=== PATIENT | male | born 1955 | race Caucasian/White ===

== ENCOUNTER 2020-09-09 12:09 | Day surgery (SDC) | payer OTHER ==
[~2020-09-09] VITALS: Ht 177.8 cm; Wt 71.8 kg
[~2020-09-09 12:09] MED LIST: CEPH500 PO; HYDACE5 PO; IBUP200 PO; TADA10TA
--- NOTE | 2020-09-09 14:15 | NUR ---
09/09/20 1415 Shira Hernandez PROPOFOL ADMINISTERED BY ANTOINE.
== END 2020-09-09 14:15 | disposition home or self-care (01) ==
LOC: ORSCSDS 12:09
PROVIDERS: Internal Medicine Gastroenterology
PROC: 0DBK8ZX Excision of Ascending Colon, Via Natural or Artificial Opening Endoscopic, Diagnostic (ICD-10-PCS; principal; 2020-09-09 13:30)
DX: Z12.11 Encounter for screening for malignant neoplasm of colon (principal); Z86.010 Personal history of colon polyps; D12.2 Benign neoplasm of ascending colon; K57.30 Diverticulosis of large intestine without perforation or abscess without bleeding; K64.8 Other hemorrhoids; Z79.899 Other long term (current) drug therapy
CPT/HCPCS: 88305; J2704; J7120

== ENCOUNTER 2024-04-11 12:42 | Day surgery (SDC) | payer OTHER ==
[~2024-04-11] VITALS: Ht 177.8 cm; Wt 75.5 kg
[~2024-04-11 12:42] MED LIST changes: +Lactated Ringer's 1,000 ML IV ONE; +propofoL 50 ML IV ONE
[2024-04-11] MEDS ORDERED: Flomax0.4 MG (12:58)
[2024-04-11] MEDS ORDERED: Lactated Ringer's 1,000 ML IV ONE (13:19)
[2024-04-11] MEDS ORDERED: Ondansetron HCl 2 MG / ML 2ML Vial ONE (14:52)
[2024-04-11] MEDS ORDERED: propofoL 50 ML IV ONE (14:58)
[2024-04-11 15:54] VITALS: BP 124/70
== END 2024-04-11 15:45 | disposition home or self-care (01) ==
LOC: ORSCSDS 12:42
PROVIDERS: Surgery
PROC: 0DJD8ZZ Inspection of Lower Intestinal Tract, Via Natural or Artificial Opening Endoscopic (ICD-10-PCS; principal; 2024-04-11 14:15)
DX: Z12.11 Encounter for screening for malignant neoplasm of colon (principal); Z86.0101 Personal history of adenomatous and serrated colon polyps; K57.30 Diverticulosis of large intestine without perforation or abscess without bleeding; N40.0 Benign prostatic hyperplasia without lower urinary tract symptoms; Z79.899 Other long term (current) drug therapy; Z87.891 Personal history of nicotine dependence
CPT/HCPCS: J2405; J2704; J7120